=== PATIENT | male | born 1990 | race Two or more races ===

== ENCOUNTER 2019-01-28 18:53 | Emergency (ER) | payer SELFPAY ==
[~2019-01-28] VITALS: Ht 177.8 cm; Wt 98.9 kg
[2019-01-28 19:10] VITALS: BP 176/105
[2019-01-28] MEDS ORDERED: PRED-220 PO (19:14)
[2019-01-28] MEDS ORDERED: TRIA15OI TP (19:14)
[2019-01-28] MEDS ORDERED: HYDR25TA PO (19:14)
--- NOTE | 2019-01-28 19:14 | PHYS DOC ---
Adult General Chief Complaint Chief Complaint: INSECT BITE HPI HPI Patient is a 29 year old male who presents with a pruritic rash that began a week ago. Denies any fever. Review of Systems Review of Systems Constitutional: Denies fever or chills [] Musculoskeletal: Denies back pain or joint pain [] Integument: Reports rash Neurologic: Denies headache, focal weakness or sensory changes [] All other systems were reviewed and found to be within normal limits, except as documented in this note. Physical Exam Physical Exam Constitutional: Well developed, well nourished, no acute distress, non-toxic appearance. [] Skin: Warm, dry, mild amount of erythematous papular rash on bilateral lower extremities worse on the left leg abdomen, extremities and trace amount on the face Back: No tenderness, no CVA tenderness. [] Extremities: No tenderness, no cyanosis, no clubbing, ROM intact, no edema. [] Neurologic: Alert and oriented X 3, normal motor function, normal sensory function, no focal deficits noted. [] Psychologic: Affect normal, judgement normal, mood normal. [] EKG EKG [] Radiology/Procedures Radiology/Procedures [] Course & Med Decision Making Course & Med Decision Making Pertinent Labs and Imaging studies reviewed. (See chart for details) Patient has contact dermatitis rash. Will be discharged on prednisone, triamcinolone cream, Pepcid and hydroxyzine. Follow-up with director patient financial services in 2 weeks Miguel Disclaimer Miguel Disclaimer This electronic medical record was generated, in whole or in part, using a voice recognition dictation system. Departure Departure Impression: Primary Impression: Contact dermatitis Disposition: 01 HOME, SELF-CARE Condition: STABLE Referrals: NO PCP (PCP) MYRIAM COREA MD follow up in 2 weeks Patient Instructions: Contact Dermatitis, [id number] Additional Instructions: You were evaluated in the emergency room for contact dermatitis rash. Take the medications prescribed as ordered. Follow-up with your doctor in 2 weeks Scripts Hydroxyzine Hcl (HYDROXYZINE HCL) 25 Mg Tablet 1 TAB PO TID, #30 TAB Prov: FELECIA BOLES APRN 01/28/19 Prednisone (PREDNISONE ) 10 Mg Tablet 10 MG PO UD for PREDNISONE TAPER, #39 TAB 0 Refills Take 3 tablets by mouth twice a day for 3 days, then take 2 tablets by mouth twice a day for 3 days, then take 1 tablet by mouth twice a day for 3 days, then take 1 tablet by mouth daily x 3 days, then stop. Prov: FELECIA BOLES APRN 01/28/19 Triamcinolone Acetonide (TRIAMCINOLONE ACETONIDE 0.1% OINT) 15 Gm Oint...g. 1 HIRO TP BID for WOUND CARE, #1 TUBE 1 Refill Prov: FELECIA BOLES APRN 01/28/19 Problem Qualifiers Primary Impression: Contact dermatitis Contact dermatitis type: unspecified Contact dermatitis trigger: unspecified trigger Qualified Codes: L25.9 - Unspecified contact dermatitis, unspecified cause FELECIA BOLES APRN Jan 28, 2019 19:14
== END 2019-01-28 19:40 | disposition home or self-care (01) ==
LOC: ER 18:53
DX: L25.9 Unspecified contact dermatitis, unspecified cause (principal)
CPT/HCPCS: 99283